=== PATIENT | female | born 1940 | race Caucasian/White ===

== ENCOUNTER → 2024-12-10 16:06 | Outpatient (REF) | payer MEDICARE, OTHER, SELFPAY | LOC: PAVMRI 16:06 | PROVIDERS: ATTENDING PHYSICIAN Family Medicine | DX: R41.3 Other amnesia (principal); I73.9 Peripheral vascular disease, unspecified; Z86.73 Personal history of transient ischemic attack (TIA), and cerebral infarction without residual deficits | CPT/HCPCS: 70551 ==

== ENCOUNTER → 2025-02-14 08:41 | Outpatient (REF) | payer MEDICARE, OTHER, SELFPAY | LOC: RAD 08:41 | PROVIDERS: ATTENDING PHYSICIAN Family Medicine; REFERRING PHYSICIAN Specialist | DX: Z13.820 Encounter for screening for osteoporosis (principal); Z78.0 Asymptomatic menopausal state; I63.311 Cerebral infarction due to thrombosis of right middle cerebral artery | CPT/HCPCS: 77080; 93880 ==